=== PATIENT | male | born 1985 | race Caucasian/White ===

== ENCOUNTER 2017-04-08 23:15 | Emergency (ER) | payer OTHER ==
[2017-04-08 23:20] VITALS: BP 145/83; PULSE 97; TEMP 98.5; BMI 35.9
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
[2017-04-09] MEDS ORDERED: IBUPROFEN 400 MG TABLET (FP) PO ONE (00:18)
[2017-04-09] MEDS ORDERED: KETOROLAC TROMETHAMINE 60 MG/2 ML VIAL IM ONE (00:20)
[2017-04-09] MEDS ORDERED: KETOROLAC TROMETHAMINE 60 MG/2 ML VIAL ONE (00:21)
[2017-04-09] MEDS ORDERED: traMADol HCL 50 MG TABLET PO ONE (00:29)
[2017-04-09] MEDS ORDERED: traMADol HCL 50 MG TABLET ONE (00:31)
[2017-04-09] MEDS ORDERED: OXYCODONE/APAP 5/325MG COMBO TABLET PO ONE (00:36)
[2017-04-09] MEDS ORDERED: OXYCODONE/APAP 5/325MG COMBO TABLET ONE (00:44)
== END 2017-04-09 00:51 | disposition home or self-care (01) ==
LOC: JER 23:15
PROC: 3E0233Z Introduction of Anti-inflammatory into Muscle, Percutaneous Approach (ICD-10-PCS; principal; 2017-04-08)
DX: S93.431A Sprain of tibiofibular ligament of right ankle, initial encounter (principal); S86.011A Strain of right Achilles tendon, initial encounter; M76.61 Achilles tendinitis, right leg; V28.0XXA Motorcycle driver injured in noncollision transport accident in nontraffic accident, initial encounter; Y92.414 Local residential or business street as the place of occurrence of the external cause; Y93.89 Activity, other specified; Y99.0 Civilian activity done for income or pay
CPT/HCPCS: 73590-TC-RT; 73610-TC-RT; 73630-TC-RT; 93971-TC; 99281-25

== ENCOUNTER 2018-01-02 15:41 | Emergency (ER) | payer OTHER ==
[2018-01-02 15:48] VITALS: BP 138/93; PULSE 115; TEMP 97.5; BMI 36.6
[2018-01-02] MEDS ORDERED: IBUPROFEN 400 MG TABLET (FP) PO ONE ×2 (16:24→16:45)
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
== END 2018-01-02 16:50 | disposition home or self-care (01) ==
LOC: JERFT 15:41
DX: S46.011A Strain of muscle(s) and tendon(s) of the rotator cuff of right shoulder, initial encounter (principal); X50.0XXA Overexertion from strenuous movement or load, initial encounter; Y93.89 Activity, other specified; Y92.89 Other specified places as the place of occurrence of the external cause; Y99.0 Civilian activity done for income or pay
CPT/HCPCS: 99281-25

== ENCOUNTER 2018-08-31 14:12 | Emergency (ER) | payer OTHER, BC ==
[2018-08-31 14:28] VITALS: BP 150/93; PULSE 105; TEMP 99.9; BMI 35.9
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
== END 2018-08-31 15:21 | disposition home or self-care (01) ==
LOC: JERFT 14:12
DX: M25.471 Effusion, right ankle (principal); Z87.81 Personal history of (healed) traumatic fracture; Y35.8 Legal intervention involving other specified means
CPT/HCPCS: 99281-25

== ENCOUNTER 2020-06-29 13:15 | Emergency (ER) | payer BC, OTHER ==
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
[2020-06-29 13:44] VITALS: BMI 36.6
[2020-06-29] MEDS ORDERED: ACETAMINOPHEN 1000 MG/100 ML VIAL (NON FORMULARY) IVPB ONE (14:18)
[2020-06-29] MEDS ORDERED: SODIUM CHLORIDE 0.9% 500 ML INFUS.BAG IV ONE ×2 (14:18→16:33)
[2020-06-29] MEDS ORDERED: ACETAMINOPHEN INJECTION 100 ML IVPB ONE (14:23)
[2020-06-29 14:42] LABS: BASO % 0.5 % (0-2.0); EOS % 0.3 % (0-4.5); HEMATOCRIT 45.9 % (35.4-49); HEMOGLOBIN 15.7 GM/dl (11.7-16.9); LYMPH % 13.2 % (8-40); MCH 32.9 pg (25.7-33.7); MCHC 34.3 g/dl (32.0-35.9); MEAN CELL VOLUME 96.1 fl (80-96); MEAN PLT VOLUME 11.1 fl (7.5-11.1); MONO % 9.1 % (3.8-10.2); NEUT % 76.9 % (42.8-82.8); PLATELET COUNT 202 K/MM3 (134-434); RBC 4.78 M/mm3 (4.00-5.60); RDW 12.2 % (11.9-15.9); WHITE BLOOD COUNT 8.6 K/mm3 (4.0-10.8)
[2020-06-29 14:45] LABS: ALBUMIN 4.5 g/dl (3.4-5.0); BILIRUBIN,TOTAL 2.4 mg/dl (0.2-1); CALCIUM 9.2 mg/dl (8.5-10); CREATININE 1.1 mg/dl (0.55-1.3); POTASSIUM 3.7 mmol/L (3.5-5.1); TOT PROT 7.4 g/dl (6.4-8.2)
--- OUTSIDE RECORDS SUMMARY | 2020-06-29 15:15 | XMS ---
:1985 Author Organization [facility] Support Name Relationship Address Phone [employer] Unavailable [address] [place] [address] [place] [address] Re-disclosure Warning The records that you are about to access may contain information from federally- assisted alcohol or drug abuse programs. If such information is present, then the following federally mandated warning applies: This information has been disclosed to you from records protected by federal confidentiality rules (42 CFR part 2). The federal rules prohibit you from making any further disclosure of this information unless further disclosure is expressly permitted by the written consent of the person to whom it pertains or as otherwise permitted by 42 CFR part 2. A general authorization for the release of medical or other information is NOT sufficient for this purpose. The Federal rules restrict any use of the information to criminally investigate or prosecute any alcohol or drug abuse patient.The records that you are about to access may contain highly sensitive health information, the redisclosure of which is protected by Article 27-F of the [facility] Public Health law. If you continue you may haveaccess to information: Regarding HIV / AIDS; Provided by facilities licensed or operated by the [facility] Office of Mental Health; or Provided by the [facility] Office for People With Developmental Disabilities. If such information is present, then the following [facility] mandated warning applies: This information has been disclosed to you from confidential records which are protected by state law. State law prohibits you from making any further disclosure of this information without the specific written consent of the person to whom it pertains, or as otherwise permitted by law. Any unauthorized further disclosure in violation of state law may result in a fine or penitentiary sentence or both. A general authorization for the release of medical or other information is NOT sufficient authorization for further disclosure. Insurance Providers Payer name Policy type Policy ID Covered Covered green party's Policy P elio / Coverage green party ID relationship to [facility] [employer] ormation type [facility] PMA Management 20 SP 06/29 [facility] PPO [id number] SP [id number]
[2020-06-29 16:20] VITALS: BP 153/104; PULSE 100; TEMP 100
== END 2020-06-29 18:37 | disposition home or self-care (01) ==
LOC: FER 13:15
PROC: 3E033NZ Introduction of Analgesics, Hypnotics, Sedatives into Peripheral Vein, Percutaneous Approach (ICD-10-PCS; principal; 2020-06-29)
DX: M25.572 Pain in left ankle and joints of left foot (principal); S76.301A Unspecified injury of muscle, fascia and tendon of the posterior muscle group at thigh level, right thigh, initial encounter; E80.7 Disorder of bilirubin metabolism, unspecified
CPT/HCPCS: 36415; 73610-TC-LT-FY; 73630-TC-LT; 76705-TC; 80053; 81003; 82550; 82553; 85025; 99285-25; J0131